=== PATIENT | female | born 1995 | race Caucasian/White ===

== ENCOUNTER 2016-09-29 16:58 | Emergency (ER) ==
[2016-09-29 17:02] VITALS: BP 122/84; TEMP 97.8; BMI 36.1
--- NOTE | 2016-09-29 17:44 | ED.PDOC ---
General ED Provider: Dr. DIONY BONE JR Chief Complaint: Finger Laceration Stated Complaint: washing dises and cut right 5th finger on glass[End]15min ago 97.8 72 18 99% 122/84 7/10 Time Seen by Physician: 17:41 Mode of Arrival: Walk-In Information Source: Patient Exam Limitations: No limitations Primary Care Provider: MELISSA VIERA Nursing and Triage Documentation Reviewed and Agree: No Review of Systems - Review Of Systems Constitutional: Reports: No symptoms Eyes: Reports: No symptoms Ears, Nose, Mouth, Throat: Reports: No symptoms Respiratory: Reports: No symptoms Cardiac: Reports: No symptoms GI: Reports: No symptoms : Reports: No symptoms Musculoskeletal: Reports: No symptoms Skin: Reports: No symptoms Neurological: Reports: No symptoms Endocrine: Reports: No symptoms Hematologic/Lymphatic: Reports: No symptoms All Other Systems: Reviewed and Negative Past Medical History - Past Medical History Previously Healthy: Yes Endocrine: Reports: None Cardiovascular: Reports: None Respiratory: Reports: None Hematological: Reports: None, Anemia Gastrointestinal: Reports: None Genitourinary: Reports: None Neuro/Psych: Reports: Migraine Musculoskeletal: Reports: None Cancer: Reports: None Last Menstrual Period: now - Surgical History General Surgical History: Reports: Cholecystectomy (GALLBALDDER REMOVED 2011 ) - Family History Family History: Reports: Unknown - Social History Smoking Status: Never smoker Hx Substance Use: No Alcohol Screening: None - Immunizations Tetanus Shot up to Date: No Physical Exam - Physical Exam Appearance: Well-appearing Skin: Warm, Dry, Normal color (note lesion) Procedures - Laceration/Wound Repair No standard instances Wound Description: Flap Wound Length (cm): 1 Wound Explored: Clean Wound Irrigated: Yes Wound Prep: Hibiclens Suture Size and Type: none Critical Care Note - Critical Care Note Total Time (mins): 0 Course - Course Vital Signs: Temp Pulse Resp BP Pulse Ox 09/29/16 16:58 97.8 F 72 18 122/84 99 Departure - Departure Time of Disposition: 17:42 Disposition: HOME SELF-CARE Discharge Problem: Laceration of finger Instructions: Laceration (ED) Condition: Good Pt referred to PMD for follow-up: Yes Additional Instructions: wash with soap and water daily bandage daily change if becomes soiled or drains through return if drains through three times in one day Tylenol for pain may use [place] for pain not controlled return if red swollen draining or increasing pain or fever over 101.0 check temperature daily Prescriptions: Hydrocodone Bit/Acetaminophen [[place] 5-325] 1 - 2 tab PO Q6HR PRN #12 tablet PRN Reason: pain Allergies/Adverse Reactions: Allergies No Known Allergies Allergy (Verified 09/29/16 17:02) Home Medications: Ambulatory Orders Hydrocodone Bit/Acetaminophen [[place] 5-325] 1 - 2 tab PO Q6HR PRN #12 tablet
== END 2016-09-29 17:54 | disposition home or self-care (01) ==
LOC: ED 16:58
DX: S61.216A Laceration without foreign body of right little finger without damage to nail, initial encounter (principal); W25.XXXA Contact with sharp glass, initial encounter
CPT/HCPCS: 99282

== ENCOUNTER 2018-01-21 08:50 | Outpatient (CLI) | payer OTHER ==
--- NOTE | 2018-01-21 10:08 | US ---
EXAM: Bilateral lower extremity venous Doppler History: Fever and rash of the right leg. Technique: Multiple sonographic images through the right lower extremity were obtained. Color duple x Doppler was used to interrogate vascular flow. Findings: The right common femoral, greater saphenous, profunda, superficial femoral, popliteal, per balbuena, posterior tibial and anterior tibial veins demonstrate spontaneous flow with normal compressio n and normal augmentation. Impression: No sonographic evidence for deep venous thrombosis
--- NOTE | 2018-01-21 10:09 | US ---
Exam: Jordan-scale and color ultrasonographic evaluation of the right posterior five. Reason for exam: Fever with rash. Comparison: None available. FINDINGS: No discrete fluid collection or abnormal vascularity is seen overlying the area of patient concern in the soft tissues of the right thigh. Impression: No ultrasonographic evidence of discrete fluid collection or mass lesion is seen overlying the area o f patient concern.
== END 2018-01-21 08:51 | disposition home or self-care (01) ==
LOC: RAD 08:50
PROVIDERS: ATTEND Family Medicine
DX: R60.0 Localized edema (principal); R21 Rash and other nonspecific skin eruption; R50.9 Fever, unspecified; R11.0 Nausea; E66.9 Obesity, unspecified
CPT/HCPCS: 76882

== ENCOUNTER 2019-01-31 22:19 | Emergency (ER) ==
--- NOTE | 2019-01-31 22:27 | ED.PDOC ---
General ED Provider: Dr. ALEK SORTO Chief Complaint: Earache Stated Complaint: 2 day history of bilateral ear pain with dainage. was seen in the clinic given antibiotic drops with steroids but has not helped. Time Seen by Physician: 22:40 Information Source: Patient Exam Limitations: No limitations Primary Care Provider: MELISSA VIERA Nursing and Triage Documentation Reviewed and Agree: Yes Does patient meet sepsis criteria?: No System Inflammatory Response Syndrome: Not Applicable Sepsis Protocol: For patient's 13 years and over: Temp is 96.8 and below OR 101 and greater Pulse >90 BPM Resp >20/minute Acutely Altered Mental Status Are patient's symptoms suggestive of a new infection, such as: -Pneumonia -Skin, Soft Tissue -Endocarditis -UTI -Bone, Joint Infection -Implantable Device -Acute Abdominal Infection -Wound Infection -Meningitis -Blood Stream Catheter Infection -Unknown EENT Complaint Exam - Ear Complaint/Exam Onset/Duration: 3 days Symptoms Are: Still present Timing: Constant Initial Severity: Moderate Current Severity: Severe Character: Reports: Dull pain, Aching pain Aggravating: Reports: Tugging on ear Alleviating: Reports: None Associated Signs and Symptoms: Reports: Pain to external ear Related History: Denies: Similar Episode Ear Surgical History: None Vesicles to External Pinna: No Vesicles to Tragus: No TMJ Tenderness: None Mastoid Tenderness: None Tragal Tenderness: None External Canal: Erythema Material in Canal: Present: Cerumen Tympanic Membrane: Erythema Differential Diagnoses: Cerumen Impaction, Otitis Externa, Otitis Media Review of Systems - Review Of Systems Constitutional: Reports: No symptoms Eyes: Reports: No symptoms Ears, Nose, Mouth, Throat: Reports: Ear pain (ear drainage) Respiratory: Reports: No symptoms Cardiac: Reports: No symptoms GI: Reports: No symptoms : Reports: No symptoms Musculoskeletal: Reports: No symptoms Skin: Reports: No symptoms Neurological: Reports: No symptoms Endocrine: Reports: No symptoms Hematologic/Lymphatic: Reports: No symptoms All Other Systems: Reviewed and Negative Past Medical History - Past Medical History Previously Healthy: Yes Endocrine: Reports: None Cardiovascular: Reports: None Respiratory: Reports: None Hematological: Reports: None, Anemia Gastrointestinal: Reports: None Genitourinary: Reports: None Neuro/Psych: Reports: Migraine Musculoskeletal: Reports: None Cancer: Reports: None - Surgical History General Surgical History: Reports: Cholecystectomy (GALLBALDDER REMOVED 2011 ) - Family History Family History: Reports: Unknown - Social History Smoking Status: Never smoker Hx Substance Use: No Alcohol Screening: None Physical Exam - Physical Exam Appearance: Ill-appearing, Obese Ill-appearing: Mild Pain Distress: Severe Eyes: REYMUNDO, EOMI, Conjunctiva clear ENT: Erythema Neck: Supple Respiratory: Airway patent, Breath sounds clear, Breath sounds equal, Respirations nonlabored Cardiovascular: Tachycardia Musculoskeletal: Normal strength, ROM intact, No edema, No calf tenderness Skin: Warm Neurological: Alert, Oriented Psychiatric: Anxious Critical Care Note - Critical Care Note Total Time (mins): 0 Departure - Departure Time of Disposition: 23:15 Disposition: HOME SELF-CARE Discharge Problem: Otitis externa Qualifiers: Otitis externa type: diffuse Chronicity: acute Laterality: bilateral Qualified Code(s): H60.313 - Diffuse otitis externa, bilateral Otitis media Qualifiers: Otitis media type: other nonsuppurative Chronicity: acute Instructions: Otitis Externa (ED), Otitis Externa (DC) Condition: Stable Pt referred to PMD for follow-up: Yes IPMP verified?: No Additional Instructions: continue current Ear Drops Take medications as prescribed Prescriptions: Acetaminophen with Codeine [Tylenol #3 Tab] 1 tab PO Q4H #10 tablet Amoxicillin [Amoxil] 500 mg PO TID #30 capsule Prednisone 20 mg PO DAILYWM #5 tablet Allergies/Adverse Reactions: Allergies No Known Allergies Allergy (Verified 01/31/19 22:33) Home Medications: Ambulatory Orders Acetaminophen with Codeine [Tylenol #3 Tab] 1 tab PO Q4H #10 tablet 01/31/19 Amoxicillin [Amoxil] 500 mg PO TID #30 capsule 01/31/19 Prednisone 20 mg PO DAILYWM #5 tablet 01/31/19 Disposition Discussed With: Patient
[2019-01-31 22:33] VITALS: BP 131/86; TEMP 99; BMI 38.2
[2019-01-31] MEDS ORDERED: NORCO 10-325 PO STA (22:34)
[2019-01-31] MEDS ORDERED: AMOXIL PO STA (22:39)
== END 2019-01-31 23:15 | disposition home or self-care (01) ==
LOC: ED 22:19
DX: H60.313 Diffuse otitis externa, bilateral (principal); H66.90 Otitis media, unspecified, unspecified ear
CPT/HCPCS: 99282